=== PATIENT | female | born 1995 | race Caucasian/White ===

== ENCOUNTER 2020-12-21 13:44 | Emergency (ER) | payer BC ==
[~2020-12-21] VITALS: Ht 162.6 cm; Wt 54.5 kg
[2020-12-21 13:56] VITALS: TEMP 99.2
[2020-12-21 15:30] VITALS: BP 130/85; PULSE 83
== END 2020-12-21 15:30 | disposition home or self-care (01) ==
LOC: COL.ER 13:44 → EDBD 13:44 → COL.ER 15:30
DX: Z20.3 Contact with and (suspected) exposure to rabies (principal)